=== PATIENT | female | born 1960 | race Caucasian/White ===

== ENCOUNTER → 2016-06-22 | Outpatient (CLI) | payer BC ==
[~2016-06-22] MED LIST: LOSARTAN-HCTZ1 EACH PO; NEXIUM40 MG PO; PREMPRO 0.3 MG1 EACH PO; VYTORIN 10-401 EACH PO
== END ==
LOC: RAD 08:30
DX: K21.9 Gastro-esophageal reflux disease without esophagitis (principal); K44.9 Diaphragmatic hernia without obstruction or gangrene
CPT/HCPCS: 74246

== ENCOUNTER → 2016-07-14 | Outpatient (CLI) | payer BC | LOC: MAMO 10:56 | DX: Z12.31 Encounter for screening mammogram for malignant neoplasm of breast (principal); R10.9 Unspecified abdominal pain; R91.8 Other nonspecific abnormal finding of lung field; R59.0 Localized enlarged lymph nodes; Z80.3 Family history of malignant neoplasm of breast | CPT/HCPCS: 71020; G0202 ==

== ENCOUNTER → 2016-07-15 | Outpatient (CLI) | payer BC | LOC: CT 11:24 → KOH-I 11:30 | DX: R91.8 Other nonspecific abnormal finding of lung field (principal) | CPT/HCPCS: 71260; J7050; Q9962 ==

== ENCOUNTER → 2016-07-20 | Day surgery (SDC) | payer BC ==
[~2016-07-20] VITALS: Ht 170.2 cm; Wt 90.3 kg
== END | disposition home or self-care (01) ==
LOC: OR 06:22
PROVIDERS: Internal Medicine Pulmonary Disease
PROC: 0BBG8ZX Excision of Left Upper Lung Lobe, Via Natural or Artificial Opening Endoscopic, Diagnostic (ICD-10-PCS; 2016-07-20)
PROC: 0BB88ZX Excision of Left Upper Lobe Bronchus, Via Natural or Artificial Opening Endoscopic, Diagnostic (ICD-10-PCS; 2016-07-20)
PROC: 0BBG8ZX Excision of Left Upper Lung Lobe, Via Natural or Artificial Opening Endoscopic, Diagnostic (ICD-10-PCS; 2016-07-20)
PROC: 0B988ZX Drainage of Left Upper Lobe Bronchus, Via Natural or Artificial Opening Endoscopic, Diagnostic (ICD-10-PCS; principal; 2016-07-20 07:30)
DX: C34.12 Malignant neoplasm of upper lobe, left bronchus or lung (principal); I10 Essential (primary) hypertension; K21.9 Gastro-esophageal reflux disease without esophagitis; F17.210 Nicotine dependence, cigarettes, uncomplicated; Z79.899 Other long term (current) drug therapy
CPT/HCPCS: 76000; J7120

== ENCOUNTER → 2016-08-26 | Outpatient (CLI) | payer BC | LOC: MRI 08:20 | DX: C34.90 Malignant neoplasm of unspecified part of unspecified bronchus or lung (principal); G93.9 Disorder of brain, unspecified | CPT/HCPCS: 70553; A9577 ==